=== PATIENT | female | born 1980 | race Two or more races ===

== ENCOUNTER 2025-05-12 20:07 | Emergency (ER) | payer MEDICAID, SELFPAY ==
[2025-05-12 20:09] VITALS: BMI 31.6
[2025-05-12 21:10] VITALS: BP 128/87; PULSE 100; RESP 18; TEMP 36.8; O2SAT 99
--- NOTE | 2025-05-12 21:18 | XR_ITS ---
Examination: CT brain head without contrast. 2-D sagittal coronal reconstructions Date and time of exam: May 12, 2025, 2127 hours INDICATIONS: Headaches beginning 4 days ago CTDI: vol (mGy): 48.8 DLP: (mGycm): 971 Technique: Multiple CT axial sections of the brain have been obtained, 5 mm slice thickness. Contrast has not been administered. 2-D sagittal, coronal reconstructions have been obtained Low dose protocols were performed. One or more of the following dose reduction techniques were used; automated exposure control, adjustment of the mA and/or KV according to patient size, use of iterative reconstruction technique. Findings: No significant ventricular enlargement. Intra-axial or extra-axial hemorrhage density is not seen. No mass effect or midline shift Basal cisterns are not remarkable. Fourth ventricle is midline. Cranial vault intact. Impression: Negative for acute hemorrhage, mass effect or midline shift Acute right maxillary sinusitis
[2025-05-12 21:48] LABS: Base Excess, Venous 3 (-3-3); O2 Saturation, Venous 51 % (96-97); PCO2, Venous 43 mmHg (36-56); PO2, Venous 27 mmHg (15-58); pH, Venous 7.42 (7.33-7.66)
[2025-05-12 21:50] LABS: Basophils # (Auto) 0.1 Thou/mm3 (0.0-0.2); Basophils % (Auto) 1 % (0-2.5); Beta Hydroxybutyrate 0.1 mmol/L (<0.6); Eosinophils # (Auto) 0.2 Thou/mm3 (0.0-0.5); Eosinophils % (Auto) 2 % (0-10); Hematocrit 41.8 % (36.0-46.0); Hemoglobin 13.0 g/dL (12.0-16.0); Immature Granulocytes Auto 0.05 Thou/mm3 (0.00-0.00); Lymphocytes # (Auto) 4.1 Thou/mm3 (1.0-4.8); Lymphocytes % (Auto) 37 % (10-50); Mean Corpuscular HGB Conc 31.1 g/dl (31.0-37.0); Mean Corpuscular Hemoglobin 24.9 pg (25.0-35.0); Mean Corpuscular Volume 80 fL (80-100); Monocytes # (Auto) 1.1 Thou/mm3 (0.0-0.8); Monocytes % (Auto) 10 % (0-12); Neutrophils # (Auto) 5.6 Thou/mm3 (1.8-7.7); Neutrophils % (Auto) 51 % (37-80); Nucleated Red Blood Cell # 0.00 Thou/mm3 (0.00-0.00); Nucleated Red Blood Cell % 0 /100 WBC (0); Platelet Count 300 Thou/mm3 (140-440); RDW Standard Deviation 43.8 fL (36.4-46.3); Red Blood Count 5.22 Miln/mm3 (4.00-5.20); White Blood Count 11.1 Thou/mm3 (3.6-11.0)
[2025-05-12 22:07] LABS: Alanine Aminotransferase 37 U/L (10-49); Albumin, Serum 4.1 gm/dL (3.5-5.0); Albumin/Globulin Ratio 1.0 (1.2-2.2); Alkaline Phosphatase 154 U/L (46-116); Anion Gap 8 (7-16); Aspartate Amino Transferase 44 U/L (0-34); BUN/Creatinine Ratio 11 Ratio (12-20); Bilirubin,Total 0.2 mg/dL (0.3-1.2); Blood Urea Nitrogen 11 mg/dL (9-23); Calcium 9.0 mg/dL (8.3-10.6); Calcium (Corrected) 9.0 mg/dL (8.5-10.1); Carbon Dioxide 28.2 mMol/L (20.0-31.0); Chloride 104 mMol/L (98-107); Creatinine (Component) 1.0 mg/dL (0.6-1.3); Estimated Creatinine Clearance 73.2 mL/min (>60); Globulin 4.0 gm/dL (2.3-3.5); Glucose 193 mg/dL (74-106); HCG,Qualitative Serum Negative; Osmolality,Calculated 283 (275-295); Potassium 4.6 mMol/L (3.4-5.1); Sodium 140 mMol/L (136-145); Total Protein 8.1 gm/dL (5.7-8.2); eGFR > 60 See Note
--- NOTE | 2025-05-12 22:48 | EDNOTE_ITS ---
ED Headache RME/HPI General Chief Complaint: General Adult/Misc Complain Stated Complaint: HIGH BLOOD SUGAR Time Seen by Provider: 05/12/25 21:18 Arrival date/time: 05/12/25 20:07 This is a case of 44-year-old female with history of diabetes came in in the emergency room due to uncontrolled blood sugar at home ranging to 200-400 patient also complaining of headache frontal area throbbing in character no other symptoms noted denies any blurring of vision nausea vomiting dizziness numbness weakness tingling sensation Limitations: no limitations Related Data Previous Rx's ?Medication ?Instructions ?Recorded acetaminophen 650 mg 650 mg PO Q8H PRN fever or p ain 10/25/17 tablet,extended release #30 tabs ibuprofen 600 mg tablet 600 mg PO Q8H PRN fever or p ain 10/25/17 #30 tabs clindamycin HCl 300 mg capsule 300 mg PO TID #30 caps 01/10/19 azithromycin 250 mg tablet 250 mg PO QDAY 6 days #6 ta bs 05/12/25 fluticasone propionate 50 1 spray intranasal BID #16 g bruce 05/12/25 mcg/actuation nasal spray,suspension (Flonase Allergy Relief) ibuprofen 800 mg tablet 800 mg PO Q8H PRN pain #20 t abs 05/12/25 ondansetron 4 mg disintegrating 4 mg PO Q8H #20 tabs 1 tablet Allergies Allergy/AdvReac Type Severity Reaction Status Date / Time No Known Allergies Allergy Verified 05/12/25 20:08 Review of Systems Review of Systems Systems Reviewed: All systems reviewed, normal except as documented Past Medical History Past Medical History NEUROLOGIC: Negative Neurological Disorders or Seizures CARDIAC: Negative Cardiac Disorders or Congestive Heart Failure RESPIRATORY: Negative Chronic Obstructive Pulmonary Disease (COPD) GASTROINTESTINAL: Positive Gastrointestinal Disorders and Obesity GENITOURINARY: Negative Genitourinary Disorders or Renal Disease MUSCULOSKELETAL: Negative Musculoskeletal Disorders ENDOCRINE: Negative Endocrine Disorders, Diabetes Mellitus Type 1 or Diabetes Mellitus Type 2 HEMATOLOGIC: Negative Blood Disorders OTHER HISTORY: Negative Autoimmune Disease, Blood Transfusions, Blood Transfusion Reaction or Anesthesia Reactions Family History FAMILY HISTORY: Positive Family Psychiatric Problems (mother-depression) Social History SMOKING STATUS: Never smoker ED Exam General Limitations: Present no limitations General appearance: Present alert, in no apparent distress and other (Patient is awake alert oriented not in distress nontoxic looking well-hydrated well- nourished) Head Head exam: Present atraumatic, normocephalic and normal inspection Eye Eye exam: Present normal appearance, PERRL, EOMI and other (PERRL EOM intact n ormal conjunctiva no papilledma) ENT ENT exam: Present normal exam, normal oropharynx, mucous membranes moist and other (HEENT exam is normal and unremarkable) Neck Neck exam: Present normal inspection, full ROM, trachea midline and other (Negative for meningeal sign); Absent tenderness, meningismus, lymphadenopathy or thyromegaly Chest Chest inspection: Present normal inspection and symmetric chest wall rise; Absent tenderness Respiratory Respiratory exam: Present normal lung sounds bilaterally; Absent respiratory distress, wheezes, stridor, accessory muscle use or prolonged expiratory phase Cardiovascular Cardiovascular exam: Present regular rate, normal rhythm and normal heart sounds; Absent bradycardia, tachycardia, irregular rhythm, systolic murmur or diastolic murmur Abdominal Exam Abdominal exam: Present soft and normal bowel sounds; Absent distention, tenderness, guarding, rebound, rigidity, diminished bowel sounds, hyperactive bowel sounds, hypoactive bowel sounds or organomegaly Extremities Exam Extremities exam: Present normal inspection and full ROM Back Exam Back exam: Present normal inspection and full ROM Neurological Exam Neurological exam: Present alert, oriented X3, CN II-XII intact, normal gait, reflexes normal and other (Awake alert oriented x 4 no focal deficit GCS 15/15 steady gait memory intact no slurring speech no facial droop motor or sensory reflex were all normal in all extremities negative obese); Absent motor sensory deficit Psychiatric Psychiatric exam: Present normal affect and normal mood Skin Skin exam: Present warm, dry, intact, normal color and other (Excellent skin turgor) Course Quality Measures none Orders Category Date Time Status Fingerstick [Bedside Blood Glucose] NOW Care 05/12/25 20:[address] head/brain wo con Stat Exams 05/12/25 21:18 Completed Beta Hydroxybutyrate Stat Lab 05/12/25 21:40 Completed CBC Stat Lab 05/12/25 21:40 Completed CMP [Comprehensive Metabolic Panel] Stat Lab 05/12/25 21:40 Completed HCG,Qualitative Serum Stat Lab 05/12/25 21:40 Completed Venous Blood Gas Stat Lab 05/12/25 21:40 Completed HYDROcodone*/APAP 5/325 [[place] 5/325] Med 05/12/25 22:48 Discontinued 1 tab PO X1 ONE Ondansetron Odt [Zofran Odt] Med 05/12/25 22:48 Discontinued 4 mg PO X1 ONE Vital Signs Vital signs: Vital Signs Temperature 98.3 F 05/12/25 21:10 Pulse Rate 100 05/12/25 21:10 Respiratory Rate 18 05/12/25 21:10 Blood Pressure 128/87 H 05/12/25 21:10 Pulse Oximetry (%) 99 05/12/25 21:10 Oxygen Delivery Method Room Air 05/12/25 21:10 Oxygen saturation is 99% in room air Headache MDM Narrative MDM Narrative:: This is a case of 44-year-old female with history of diabetes came in in the [facility] room due to uncontrolled blood sugar at home ranging to 200-400 patient also complaining of headache frontal area throbbing in character no other symptoms noted denies any blurring of vision nausea vomiting dizziness numbness weakness tingling sensation physical examination patient is awake alert oriented not in distress nontoxic looking well-hydrated well-nourished patient vital signs stable BP stable 128/87 nontachycardic nontachypneic afebrile and nonhypoxic oxygen saturation is normal normocephalic atraumatic PERRL EOM intact normal conjunctiva no pappiledema negative for meningeal sign lungs sound is clear no crackles no rales no retraction no stridor heart normal rate regular rhythm no murmur neurological exam is normal awake alert oriented x 4 no focal deficit GCS 15/15 steady gait memory intact no slurring of no facial droop motor or sensory reflex were all normal in all extremities excellent skin turgor patient blood test showed no leukocytosis no anemia kidney and liver function is normal no electrolyte patient blood sugar is 193 normal anion gap beta hydroxybutyrate is also normal venous blood gas is normal thus patient is not having DKA at the time of exam due to blood sugar is only 193 patient do not need any treatment for hyperglycemia patient will continue his medication for diabetes and continue his monitoring for blood sugar she was advised if the blood sugar greater than 250 or less than 80 or become symptomatic return immediately in the emergency room or call [address] scan is normal only acute maxillary sinusitis test patient will be discharged with Z-David and Flonase at this point patient is stable to be discharge patient will follow-up with PCP in 2 days for reevaluation and to be referred to neurologist for headache and for any worsening symptoms or any emergent concern return precaution in the ER is advised Patient was discharged with comfortable condition walking with stable gait. Patient verbalized no further complains explained diagnosis and answered patient question. Patient is comfortable with the proposed management plan including the need to follow up with his/her primary care physician and any specialist if applicable Discussed patient for any urgent condition or worsening sx, He/She needed to go to emergency room immediately or call 911. Patient acknowledge the responsibility to follow up as instructed and to monitor her/his symptoms. For any persistence of the symptoms for more than 3-5 days return precaution advised. Discussed the result of the test and was given printed discharge instruction Patient data External records reviewed:: [facility] previous records Clinical information provided by:: patient Social determinants that could affect healthcare access:: none Patient has the following chronic illnesses:: None How is presenting disease/condition affected by chronic disease/condition?: no chronic disease Evaluation data The following diagnostics were reviewed and interpreted by me:: lab results and radiology exam(s) Lab and/or radiology exams considered but not ordered:: Reviewed Interpretation Summary: Reviewed Medications / Prescriptions Medications or Prescriptions considered but not ordered:: Given Medication administrations:: Medication Administration History Discontinued Medications Hydrocodone Bitart/Acetaminophen (Hydrocodone/Apap 5/325 Tablet) 1 tab PO X1 ONE Stop: 05/12/25 22:49 Last Admin: 05/12/25 22:57 Dose: 1 tab Documented By: GALILEO Ondansetron HCl (Ondansetron Odt 4 Mg Tabrap) 4 mg PO X1 ONE; Protocol Stop: 05/12/25 22:49 Last Admin: 05/12/25 22:56 Dose: 4 mg Documented By: GALILEO Given Consultations Consultation(s) initiated? (list below): No Diagnosis Differential diagnosis headache: migraine, tension headache, headache and sinusitis Most likely diagnosis given after review of the tests above:: Headache acute sinus infection uncontrolled diabetes Admission Indicated Admission indicated?: not indicated Explain why admission is indicated or not indicated:: Not indicated Admission Request Was there a request for admission?: No Admission Attestation Admission request attestation: Not indicated Disposition Plan Disposition Plan: Discharge Discharge Attestation Discharge Attestation: The patient and all family members were given an opportunity to ask questions and understood the discharge instructions. Discharge instructions specifically effects, indications for sooner follow up or return to the emergency department, and the expected course of current diagnosis. Patient condition: Stable Discharge Plan Plan Patient Disposition: HOME (Self Care) Patient condition on transfer: Stable Prescriptions/Referrals Prescriptions/Med Rec: New azithromycin 250 mg tablet 250 mg PO QDAY 6 Days Qty: 6 0RF Rx Instructions: start on day 2 of therapy ibuprofen 800 mg tablet 800 mg PO Q8H PRN (Reason: pain) Qty: 20 0RF ondansetron 4 mg tablet,disintegrating 4 mg PO Q8H Qty: 20 0RF fluticasone propionate [Flonase Allergy Relief] 50 mcg/actuation spray,suspension 1 spray intranasal BID Qty: 16 0RF Rx Instructions: administer into each nostril No Action acetaminophen 650 mg tablet extended release 650 mg PO Q8H PRN (Reason: fever or pain) Qty: 30 0RF Rx Instructions: swallow whole; do not crush, chew, break, dissolve, cut, or open ibuprofen 600 mg tablet 600 mg PO Q8H PRN (Reason: fever or pain) Qty: 30 0RF Rx Instructions: prn pain / fever clindamycin HCl 300 mg capsule 300 mg PO TID Qty: 30 0RF Referrals: Tala Mccoy MD [Primary Care Provider, Internal Medicine] - In 1 week Problem List Clinical Impression: Headache, Sinusitis, Uncontrolled diabetes mellitus Patient/Caregiver Discharge Instructions Education Materials: Self-Care for Headaches, Diabetes: Activity Tips, Self- Care for Sinusitis Additional Instructions: Follow-up with your primary care physician in 2 days for reevaluation and to be referred to neurology for your headache it is also important to see an wildlife conservation officer for further evaluation and treatment of your uncontrolled diabetes at this point your headache because is because of your sinus infection thus you will be started on antibiotic make sure that you finish the antibiotic and use Flonase your blood sugar is 190 here in the emergency room at this point there is no treatment you will continue to take your medication for diabetes continue to monitor your blood sugar if your blood sugar is greater than 250 or less than 80 or become symptomatic return immediately here in the emergency room or call 911 worsening symptoms or any emergent concern call 911 or go to the nearest emergency room keep hydrated Print Language: Czech Stand Alone Forms: Jillian Award Info., Patient Portal Info Letter PA/HYDRAULIC SPECIALIST Supervising Physician PA/HYDRAULIC SPECIALIST Supervising Physician: Dr. Mcdaniel
[2025-05-12] MEDS: ONDANSETRON ODT 4 MG TABRAP PO (22:56)
[2025-05-12] MEDS: HYDROcodone/APAP 5/325 TABLET 1 TAB PO (22:57)
[2025-05-12 23:30] VITALS: RESP 16
== END 2025-05-12 23:44 | disposition home or self-care (01) ==
PROVIDERS: Nurse Practitioner Family; Emergency Provider Emergency Medicine; PCP Student in an Organized Health Care Education/Training Program
DX: J01.00 Acute maxillary sinusitis, unspecified (principal); E11.65 Type 2 diabetes mellitus with hyperglycemia
CPT/HCPCS: 36415; 70450; 80053; 82010; 82803; 84703; 85025; 99283; Q0162; A9270